=== PATIENT | female | born 1990 | race Caucasian/White ===

== ENCOUNTER 2019-07-17 06:24 | Day surgery (SDC) | payer BC ==
[2019-07-16 10:21] LABS: Absolute Lymphocytes (CBC) 3.1 K/uL (0.7-4.9); Hematocrit 46.5 % (36.0-45.0); Lymphocytes % 35.7 % (15.3-44.8); MPV 8.2 fL (7.6-11.3)
--- NOTE | 2019-07-16 10:35 | RAD REPORT ---
EXAM DESCRIPTION: RAD - Chest Pa And Lat (2 Views) - 07/16/2019 10:08 am CLINICAL HISTORY: preop, pending cholecystectomy COMPARISON: No comparisons TECHNIQUE: Frontal and lateral views of the chest were obtained. FINDINGS: The lungs are clear. Heart size is normal and central vasculature is within normal limit s. No pleural effusion or pneumothorax seen. No acute bone finding. Accentuated thoracic kyphosis n oted. Minimal endplate spurring changes are present. No aortic abnormality. IMPRESSION: No acute cardiopulmonary process.
[2019-07-16 10:52] LABS: ALT/SGPT 169 U/L (12-78); AST/SGOT 54 U/L (15-37); Albumin 3.7 g/dL (3.4-5.0); Alkaline Phosphatase 63 U/L (45-117); Amylase Level 47 U/L (25-115); BUN Blood Urea Nitrogen 8 mg/dL (7-18); Bicarbonate 27 mmol/L (21-32); Bilirubin Direct < 0.1 mg/dL (0-0.2); Bilirubin Total 0.2 mg/dL (0.2-1.0); Glucose Level 51 mg/dL (74-106); Lipase 156 U/L (73-393); Potassium 4.5 mmol/L (3.5-5.1); Protein, Total 7.6 g/dL (6.4-8.2); Sodium Level 142 mmol/L (136-145)
[2019-07-17] MEDS ORDERED: Ringers Lactate 1,000 ML IV ONE ×2 (06:44→09:39)
[2019-07-17] MEDS ORDERED: propofoL 200 MG/20 ML VIAL IV ONE (07:05)
[2019-07-17] MEDS ORDERED: LIDOCAINE 2% MPF 5 ML VIAL ONE (07:05)
[2019-07-17] MEDS ORDERED: ROCURONIUM 50 MG/5 ML VIAL IV ONE (07:06)
[2019-07-17] MEDS ORDERED: MIDAZOLAM HCL 2 MG/2 ML INJ ONE ×2 (07:06→07:54)
[2019-07-17] MEDS ORDERED: FENTANYL CITR 100 MCG/2 ML ONE ×2 (07:06→08:31)
[2019-07-17] MEDS: CEFOXITIN/SWI 1gm 1 GM/10 ML SYR ONE ×2 (07:40→07:45)
[2019-07-17] MEDS ORDERED: SUCCINYLCHOLINE 20 MG/ML (10 ML) IV ONE (07:56)
[2019-07-17] MEDS ORDERED: ONDANSETRON 4 MG/2 ML VIAL ONE ×2 (08:33→09:32)
[2019-07-17] MEDS ORDERED: GLYCOPYRROLATE 0.2 MG/ML SYR ONE ×2 (08:33)
[2019-07-17] MEDS ORDERED: NEOSTIGMINE 1 MG/ML -5 ML ONE (08:33)
--- NOTE | 2019-07-17 08:46 | P.BOP ---
Preoperative diagnosis: acute cholecystitis, symptomatic cholelithiasis Postoperative diagnosis: same Primary procedure: Lap cholecystectomy Estimated blood loss: <10cc Specimen: gb Findings: as above Anesthesia: General Complications: None Transferred to: Recovery Room Condition: Good
[2019-07-17] MEDS ORDERED: KETOROLAC 30 MG/ML INJ ONE (09:31)
[2019-07-17] MEDS ORDERED: HYDROMORPHONE HCL 1 MG/ML INJ ONE (09:32)
[2019-07-17 09:56] VITALS: TEMP 97.7; O2SAT 95
[2019-07-17 10:00] VITALS: BP 106/55
[2019-07-17] MEDS ORDERED: CODEINE 30MG/APAP 300MG TAB PO ONE (10:33)
[2019-07-17] MEDS ORDERED: CODEINE 30MG/APAP 300MG TAB ONE (10:34)
== END 2019-07-17 10:53 | disposition home or self-care (01) ==
LOC: OR 06:24
PROVIDERS: ATTEND Surgery
PROC: 0FT44ZZ Resection of Gallbladder, Percutaneous Endoscopic Approach (ICD-10-PCS; principal; 2019-07-17 07:30)
DX: K80.12 Calculus of gallbladder with acute and chronic cholecystitis without obstruction (principal); K21.9 Gastro-esophageal reflux disease without esophagitis; F17.210 Nicotine dependence, cigarettes, uncomplicated; E05.00 Thyrotoxicosis with diffuse goiter without thyrotoxic crisis or storm; Z80.41 Family history of malignant neoplasm of ovary
CPT/HCPCS: 85025; 80048; 36415; 82150; 84703; 80076; 88304; 83690; 71046; 47562; J2704; J0330; J2250 ×2; J3010 ×2; J1170; J2710; J7120 ×2; J2405 ×2